=== PATIENT | female | born 1930 | race Caucasian/White ===

== ENCOUNTER 2017-04-29 15:58 | Inpatient (IN) | payer MEDICARE ==
[~2017-04-29] VITALS: Ht 160 cm; Wt 60.4 kg
--- OUTSIDE RECORDS SUMMARY | ~2017-04-29 | XMS | Clinical Summary ---
Demographics + + + | Address | [address] | | | [place] [address] | + + + | Home Phone | | + + + | Preferred Language | Unknown | + + + | Marital Status | Single | + + + | Baptism Affiliation | NON | + + + | Race | White | + + + | Ethnic Group | Not or | + + + Author + + + | Author | NON REVENUE LOCATIONS | + + + | Organization | NON REVENUE LOCATIONS | + + + | Address | Unknown | + + + | Phone | Unavailable | + + + Support +------+ +---------+ + | Name | Relationship | Address | Phone | +------+ +---------+ + ECON | Unknown | | +------+ +---------+ + Care Team Providers + +------+ + | Care Hat Marker Name | Role | Phone | + +------+ + PP | Unavailable | + +------+ + Source Comments RAFIA is fully live on both [facility] Ambulatory and [facility] InPatient.[facility] Allergies + + + + + + | Active Allergy | Reactions | Severity | Noted | Comments | | | | | Date | | + + + + + + | Tom Inhibitors | | | 02/22/20 | | | | | | 09 | | + + + + + + | Aspirin-Dipyridamole | | | 02/22/20 | | | | | | 09 | | + + + + + + | Meperidine (Pf) | Nausea/Vomiting | Medium | 07/05/19 | | | | | | 08 | | + + + + + + | Hydrochlorothiazide | | | 02/22/20 | | | | | | 09 | | + + + + + + Current Medications + + + +---------+------+------+-------+ | Prescription | Sig. | Disp. | Refills | Star | End | Statu | | | | | | t | Date | s | | | | | | Date | | | + + + +---------+------+------+-------+ | LOVASTATIN 40 MG | 1 tab q daily | | | | | Activ | | TAB | | | | | | e | + + + +---------+------+------+-------+ | CALCIUM 500 MG TAB | None Entered | | | | | Activ | | | | | | | | e | + + + +---------+------+------+-------+ | CENTRUM SILVER TAB | 1 tab q daily | | | | | Activ | | | | | | | | e | + + + +---------+------+------+-------+ | Tiotropium [place] | 1 puff q daily | | | | | Activ | | (SPIRIVA WITH | | | | | | e | | HANDIHALER) 18 mcg | | | | | | | | Inhalation Capsule, | | | | | | | | w/Inhalation Device | | | | | | | + + + +---------+------+------+-------+ | Levothyroxine | 1 tab q daily | | | | | Activ | | Sodium 50 mcg Oral | | | | | | e | | Tab | | | | | | | + + + +---------+------+------+-------+ | Fenofibrate | 1 tab q daily | | | | | Activ | | Micronized (TRICOR) | | | | | | e | | 48 mg Oral Tab | | | | | | | + + + +---------+------+------+-------+ | Aliskiren | 1 tab q daily | | | | | Activ | | (TEKTURNA) 150 mg | | | | | | e | | Oral Tab | | | | | | | + + + +---------+------+------+-------+ | Aspirin 81 mg Oral | Take 81 mg by mouth | | | | | Activ | | Tablet | once daily. | | | | | e | + + + +---------+------+------+-------+ | ALBUTEROL INHL | Inhale as needed. | | | | | Activ | | | | | | | | e | + + + +---------+------+------+-------+ | | Take 1 Tab by mouth | | | | | Activ | | olmesartan-hydrochlo | once daily. | | | | | e | | rothiazide (BENICAR | | | | | | | | HCT) 40-12.5 mg Oral | | | | | | | | Tablet | | | | | | | + + + +---------+------+------+-------+ | OMEPRAZOLE | Take by mouth once | | | | | Activ | | (PRILOSEC ORAL) | daily. | | | | | e | + + + +---------+------+------+-------+ | GUAR GUM | Take by mouth once | | | | | Activ | | (BENEFIBER ORAL) | daily. | | | | | e | + + + +---------+------+------+-------+ | | Inhale 1 Puff two | | | | | Activ | | fluticasone-salmeter | times daily. | | | | | e | | ol (ADVAIR DISKUS) | | | | | | | | 250-50 mcg/Dose | | | | | | | | Inhalation Disk with | | | | | | | | Device | | | | | | | + + + +---------+------+------+-------+ | | Take 1 Cap by mouth | | | | | Activ | | amlodipine-benazepri | two times daily. | | | | | e | | l 5-10 mg Oral | | | | | | | | Capsule | | | | | | | + + + +---------+------+------+-------+ | carvedilol 12.5 mg | Take 6.25 mg by | | | | | Activ | | Oral Tablet | mouth two times | | | | | e | | | daily. Administer | | | | | | | | with food. | | | | | | + + + +---------+------+------+-------+ | oxybutynin | Take 0.5 Tabs by | 60 Tab | 5 | 05/2 | | Activ | | (DITROPAN) 5 mg Oral | mouth two times | | | 5/20 | | e | | Tablet | daily. If | | | 10 | | | | | ineffective, may | | | | | | | | increase to three | | | | | | | | times a day (every 8 | | | | | | | | hours) | | | | | | + + + +---------+------+------+-------+ Active Problems + + + | Problem | Noted Date | + + + | Urinary incontinence | 08/14/2009 | + + + | Malignant neoplasm of cervix uteri (HCC) | 09/17/2005 | + + + + + | Overview: ICD10 | + + + +---+ | Transient cerebral ischemia | | + +---+ + + | Overview: <PROVIDER>JOELNE BOONE | | | | ICD10 | + + Immunizations + + + + | Name | Dates Previously Given | Next Due | + + + + | Influenza, split | 06/21/2008 | | + + + + | [id number] | 02/20/2009 | | + + + + Family History + + +------+ + | Medical History | Relation | Name | Comments | + + +------+ + | Heart Disease | Brother | | | + + +------+ + | Heart Disease | Father | | | + + +------+ + + +------+ + + | Relation | Name | Status | Comments | + +------+ + + | Brother | | | | + +------+ + + | Father | | | | + +------+ + + Social History + +-------+ +--------+------+ | Tobacco Use | Types | Packs/Day | Years | Date | | | | | Used | | + +-------+ +--------+------+ | Never Smoker | | | | | + +-------+ +--------+------+ + + + | Sex Assigned at | Date Recorded | | | | + + + | Not on file | | + + + Last Filed Vital Signs + + + + | Vital Sign | Reading | Time Taken | + + + + | Blood Pressure | 140/60 | 08/14/2009 11:37 AM PDT | + + + + | Pulse | 81 | 08/14/2009 11:37 AM PDT | + + + + | Temperature | 37.1 C (98.7 F) | 08/14/2009 11:37 AM PDT | + + + + | Respiratory Rate | 12 | 10/14/2005 11:52 AM PDT | + + + + | Oxygen Saturation | 91% | 08/14/2009 11:37 AM PDT | + + + + | Inhaled Oxygen | - | - | | Concentration | | | + + + + | Weight | 83.1 kg (183 lb 1.6 | 08/14/2009 11:37 AM PDT | | | oz) | | + + + + | Height | 160 cm (5' 3") | 08/14/2009 11:37 AM PDT | + + + + | Body Mass Index | 32.43 | 08/14/2009 11:37 AM PDT | + + + + Plan of Treatment + + + + + | Health Maintenance | Due Date | Last Done | Comments | + + + + + | INFLUENZA VACCINE | | 06/21/2008 | | | (FLU SHOT) | 7 | | | + + + + + Results Not on filefrom Last 3 Months
--- OUTSIDE RECORDS SUMMARY | ~2017-04-29 | XMS | Clinical Summary ---
Demographics + + + | Address | [address] | | | [place] [address] | + + + | Home Phone | | + + + | Preferred Language | Unknown | + + + | Marital Status | Single | + + + | Muslim Affiliation | NON | + + + [...] Team Providers + +------+ + | Care Secure Software Assessor Name | Role | Phone | + +------+ + PP | Unavailable | + +------+ + Source Comments RAFIA is fully live on both [facility] Ambulatory and [facility] InPatient.[facility] Allergies + + + + + + [...] | + + + +---------+------+------+-------+ | Tiotropium [place] | 1 puff q daily | | [...] | + +---+ + + | Overview: <PROVIDER>JOLENE BOONE | | | | ICD10 | + + Immunizations + + + + | Name | Dates Previously Given | Next Due | + + + + | Influenza, split | 06/21/2008 | | + + + + | [id number] | 02/20/2009 | | + + + [...]
--- OUTSIDE RECORDS SUMMARY | ~2017-04-29 | XMS | Clinical Summary ---
Demographics + + + | Address | [address] | | | [place] [address] | + + + | Home Phone [...] Team Providers + +------+ + | Care Mis Director Name | Role | Phone | + +------+ + PP | Unavailable | + +------+ + Source Comments RAFIA is fully live on both [facility] Ambulatory and [facility] InPatient.[facility] Allergies + + + + [...] | + + + +---------+------+------+-------+ | Tiotropium [place] | 1 puff q daily | | [...] | | + + + + | [id number] | 02/20/2009 | | + + + [...]
[~2017-04-29 15:58] MED LIST: ALBUTEROL SULF8.5 GM INH; AMLODIPINE BESYL5 MG PO; ASPIRIN EC81 MG PO; ATENOLOL50 MG PO; BENICAR HCT 401 EAC1 PO; CARVEDILOL6.25 MG PO; DOXAZOSIN MESYLA1 MG PO; FENOFIBRATE145 MG PO; IPRAT-ALBUT 0.5-3 ML INH; LEVOTHYROXINE50 MCG PO; LOVASTATIN40 MG PO; METFORMIN HCL500 MG PO; MULTIPLE VITAM1 EAC2 PO; OMEPRAZOLE20 M1 PO; PROBIOTIC1 EAC2 PO; SPIRIVA18 MCG INH; TEKTURNA150 MG PO
[2017-04-29] MEDS ORDERED: ADULT ASPIRIN R81 MG PO (16:26)
[2017-04-29] MEDS ORDERED: FISH OIL 1,0001 EAC5 PO (16:27)
[2017-04-29] MEDS ORDERED: LASIX20 MG PO (16:28)
[2017-04-29] MEDS ORDERED: POTASSIUM CHLO10 MEQ PO (16:28)
[2017-04-29] MEDS ORDERED: VENTOLIN HFA18 GM INH (16:29)
[2017-04-29] MEDS ORDERED: IRON325 M1 PO (16:29)
[2017-04-29] MEDS ORDERED: OCUVITE TABLET1 EAC1 PO (16:30)
[2017-04-29] MEDS ORDERED: VITAMIN D1000 UNI1 PO (16:30)
[2017-04-29] MEDS ORDERED: COZAAR100 MG PO (16:30)
--- NOTE | 2017-04-29 20:50 | NUR ---
1936 - Pt admitted to room 119 from ED via [facility], dx chf exarcebation. pt acompanied by daughter. Sob and anxiety noted during transfer. pt transferred with assist to bed. O2 2l NC, sats were 84-86%, O2 up to 3L 86-88% after several minutes, R 26, shallow and rapid. Pt encouraged to slow down resp and do CDB, O2 up to 4L nc, sats up to 91% after several minutes. Pt encouraged and praised anxiety reduced. 2029 - neb given , hob elevated to pts comfort. much calmer after tx, mag rider started, took 40meq of po K. Pt cooperative with admit assessment, repositioned multiple times in bed, f/c patent, tele in place
--- NOTE | 2017-04-29 22:05 | NUR ---
PATIENTS ASSMENT COMPLETED AND RECORDED. PATIENT IS RESTING IN BED WITH HOB UP. PATIENT DENIES ANY SOB AT THIS TIME. PATIENT DOES HAVE 2+ EDEMA BILAT IN HER LOWER EXT. PATIENT IS ON TELE #6, IRREGULAR RHYTHM, HR 76. PATIENT IS ON 2L VIA NC. PULSE OX IN PLACE AND READINGS ARE WNL. PATIENT HAS BAGLEY IN PLACE, OUTPUT IS QS. ALL QUESTIONS ANSWERED. PATIENT DENIES ANY FURTHER NEEDS AT THIS TIME. PATIENT EDUCATED ON THE USE OF THE CALL LIGHT. PATIENT VERBALIZED UNDERSTANDING. PATIENTS DAUGHTER KARLY IS AT THE BEDSIDE. NO FURTHER NEEDS NOTED. CALL LIGHT IN REACH. PATIENT IS SL.
--- NOTE | 2017-04-30 00:25 | NUR ---
PATIENTS MEDICATIONS GIVEN PER ORDER. PATIENT REMAINS ON 3L VIA NC. PATIENTS PULSE OX READINGS ARE WNL. PATIENT DENIES ANY SOB. PATIENT STATED "I FEEL SO MUCH BETTER". PATIENT IS ON TELE #6, HR 68. NO FURTHER NEEDS NOTED CALL LIGHT IN REACH.
--- NOTE | 2017-04-30 03:19 | NUR ---
PATIENTS VITALS TAKEN AND RECORDED. PATIENTS BAGLEY IS DRAINGIN YELLOW URINE, OUPUT IS QS. PATIENT REMAINS ON 3L VIA NC. PULSE OX READINGS ARE WNL. PATIENT STATED "I AM FINALLY GETTING GOOD REST". PATIENT DENIES ANY NEEDS AT THIS TIME. CALL LIGHT IN REACH.
--- NOTE | 2017-04-30 04:05 | NUR ---
Pt has slept most of this shift, alert and oriented. Up to bsc, had large hard bm. f/c patent, draining dark yellow urine. Able to stand up for daily weight Tolerated well,
--- NOTE | 2017-04-30 04:07 | NUR ---
PATIENT ASSISTED TO THE BSC A 1PA. PATIENT WAS ABLE TO HAVE A SMALL BM. PATIENT IS NOW BACK IN BED RESTING. NO FURTHER NEEDS NOTED. CALL LIGHT IN REACH.
--- NOTE | 2017-04-30 05:15 | NUR ---
PATIENT RESTED WELL DURING THE LATER PART OF THE SHIFT. PATIENT IS ON A CARDIAC DIET. PATIENT HAS HOB AT 45 DEGREES. PATIENT IS ON TELE #6, IRREGULAR, HR IN THE 70'S. PATIENT HAS BAGLEY IN PLACE. URINE IS YELLOW AND OUTPUT IS QS. PATIENT IS AAOX3 AND USES CALL LIGHT APPROPRIATELY. PATIENT IS ON 3L VIA NC (2 CHRONICALLY). PATIENT IS A 1PA TO [facility]. SOB WITH ACTIVITY. PATIENT HAS EDEMA BILAT IN LOWER EXT.
--- NOTE | 2017-04-30 06:01 | NUR ---
PATIENTS VITALS TAKEN AND RECORDED. PATIENT DENIES ANY SOB AT THIS TIME. PATIENT TITRATED TO 2L VIA NC. PATIENTS OXYGEN SATURATION IS 95% ON 2L. PATIENT REMAINS ON TELE #6, IRREGULAR, HR 68. NO NEEDS NOTED AT THIS TIME. CALL LIGHT IN REACH.
--- NOTE | 2017-04-30 07:00 | NUR ---
REPORT RECEIVED FROM NICANOR, PATIENT IS RESTING IN BED WITH OXYGEN ON AT 2L PER NC. HOB ELEVATED AND PATIENT HAS NO C/O SOB OR PAIN AT THIS TIME.
--- NOTE | 2017-04-30 07:46 | NUR ---
PATIENT 1 PERSON ASSIST WITH 2L NC OXYGEN UP TO THE BATHROOM TO ATTEMPT TO HAVE A BM. PATIENT VITALS TAKEN AND AM MEDICATION GIVEN AT THIS TIME. SHE IS ALERT AND ORIENTED AND DENIES ANY SOB WHEN UP TO THE BATHROOM.
--- NOTE | 2017-04-30 08:23 | NUR ---
PATIENT ATE 80% OF HER BREAKFAST, SHE REMAINS ON OXYGEN AT 2L PER NC. NO C/O SOB AT THIS TIME
--- NOTE | 2017-04-30 09:12 | NUR ---
patient assisted back to bed at this time, daughter at bedside, no c/o sob or pain at this time, patient lungs are dim but clear and pulse ox remains on
--- NOTE | 2017-04-30 09:48 | NUR ---
CONSULT RECEIVED FOR LOW-SODIUM DIET EDUCATION FOR CHF. PATIENT LIVES WITH HER DAUGHTER, KARLY, WHOM I KNOW PERSONALLY. KARLY COOKS MEALS FROM [employer], ALTHOUGH THEY DO HAVE SANDWICHES FOR LUNCH AT TIMES. I GAVE THEM A FOLDER WITH NUTRITION THERAPY FOR HEART FAILURE INFO, LOW-SODIUM GROCERY LIST, TIPS ON FLAVORING FOOD WITHOUT USING SALT, LOW-SODIUM SNACK LIST, AND LOW-SODIUM COOKBOOK TITLES AND WEBSITES. I REMINDED THEM THAT THE SODIUM LIMIT IS 2,000 MG A DAY - THIS INCLUDES WHAT IS ALREADY IN FOOD PLUS WHAT IS ADDED WHEN COOKING OR EATING. PROVIDED SOME PRODUCTS TO SWITCH TO FOR SODIUM SAVINGS. THEY APPRECIATED THE INFO. KARLY CAN CALL ME IF SHE HAS MORE QUESTIONS. THEY WILL DO WELL.
--- NOTE | 2017-04-30 09:52 | NUR ---
DOCTOR BERKLEY IN TO SEE THE PATIENT, LASTING MACHINE OPERATOR HAS ALSO BEEN IN TO VISIT WITH THE FAMILY AND THE PATIENT. ALL ARE UNDERSTANDING OF THE PLAN OF CARE AT THIS TIME. US COMING FOR AN ECHO AT THIS TIME. PATIENT RESTING IN BED HOB ELEVATED WITH RAILS UP
--- NOTE | 2017-04-30 10:22 | NUR ---
ULTRASOUND COMPLETED, EXTRA DOSE OF LASIX GIVEN AT THIS TIME. PATIENT MOVED UP IN BED.
[2017-04-30] MEDS ORDERED: FLOVENT HFA12 G1 INH (11:09)
[2017-04-30] MEDS ORDERED: AMLODIPINE BESY10 MG PO (11:10)
[2017-04-30] MEDS ORDERED: LOSARTAN-HCTZ1 EAC2 PO (11:12)
[2017-04-30] MEDS ORDERED: PHILLIPS' COLO1 EACH PO (11:13)
[2017-04-30] MEDS ORDERED: FISH OIL 1,2001 EACH PO (11:13)
[2017-04-30] MEDS ORDERED: CENTRUM SILVER1 EAC3 PO (11:13)
[2017-04-30] MEDS ORDERED: FIBER350 GM PO (11:14)
[2017-04-30] MEDS ORDERED: METOPROLOL SUCC50 MG PO (11:15)
--- NOTE | 2017-04-30 11:16 | NUR ---
MED REC COMPLETE
--- NOTE | 2017-04-30 12:06 | NUR ---
PATIENT ATE 100% OF HER LUNCH, URINE OUTPUT AFTER LAST DOSE OF LASIX HAS INCREASED AT THIS TIME, URINE IS CLEAR LIGHT YELLOW IN COLOR.
--- NOTE | 2017-04-30 12:55 | NUR ---
RECIEVED REPORT FROM DEREK DEGROOT. PATIENT RESTING IN BED. DAUGHTER AT BEDSIDE. REFILLED WATER PITCHER. PATIENT DENIES FURTHER NEEDS. NC IN PLACE, CONT. PULSE OX IN PLACE AT 97%. CALL LIGHT IN REACH.
--- NOTE | 2017-04-30 13:07 | EKG ---
[facility] [address] [place] [address] Signed Sinus rhythm with 1st degree AV block with premature supraventricular complexes Left bundle branch block Abnormal ECG No previous ECGs available Confirmed by JESUS GOODEN MD ([id number]) on 04/30/2017 1:07:19 PM Electronically Signed By: JESUS GOODEN MD 04/30/17 1307 PATIENT NAME: SIGRID CHANCE AUDRA Electrocardiogram DATE OF : [birth year] PHYSICIAN: JESUS GOODEN MD REPORT #: [id number] REPORT IS CONFIDENTIAL AND NOT TO BE RELEASED WITHOUT AUTHORIZATION
--- NOTE | 2017-04-30 13:45 | NUR ---
PATIENT RESTING IN BED. DAUGHTER AT BEDSIDE. NASAL CANNULA IN PLACE. FINE CRACKLES HEARD IN LLL, OTHERWISE LUNGS ARE CLEAR. HR REGULAR. BS ACTIVE. NON-PITTING EDEMA NOTED IN BLE. PALPABLE PEDAL PULSES. PATIENT DENIES PAIN. DENIES SOB. BREATHING IS EVEN AND UNLABORED. BAGLEY CATHETER IN PLACE DRAINING CLEAR YELLOW URINE. PATIENT AND DAUGHTER DENY NEEDS. CALL LIGHT IN REACH.
--- NOTE | 2017-04-30 15:49 | NUR ---
RESPIRATORY THERAPY IN TO ADMINISTER NEB TX. PATIENT DENIES NEEDS/
--- NOTE | 2017-04-30 16:19 | NUR ---
AMBULATED WITH PATIENT AROUND [facility] UN[facility] X 2 WITH FWW AND O2 TANK. BACK TO ROOM WITH PATIENT, SAT HER UP IN CHAIR. PATIENT STATES SHE FEELS A LITTLE SOB. BLE ELEVATED. DENIES NEEDS. CALL LIGHT IN REACH.
--- NOTE | 2017-04-30 16:28 | NUR ---
HEART FAILURE EDUCATION - Pt. unable to participate at this time. Daughter is livestock yard attendant and was very receptive to information. [facility] Given HF folder with Living with HF book and Zones magnet. Discussed use of medication for HF and potential side effects. Has 7 day pill reminder box. Daughter is now managing medications. Pharmacy is [facility] but states will purchase a new easier to read type. Has already seen military source operations officer for low sodium diet. Daughter does most of the cooking and shopping. Already follows a healthy diet low in processed foods. Has transportation. Does use home oxygen PRN. Daughter states has had a sleep study but she is unsure of results. She has questions about community support for caregivers that Natasha Richey will follow up on.
--- NOTE | 2017-04-30 17:32 | NUR ---
PATIENT HAVING DINNER WITH FAMILY. POTASSIUM ADMINISTERED. PATIENT DENIES NEEDS. REFILLED WATER PITCHER. CALL LIGHT IN REACH.
--- NOTE | 2017-04-30 17:34 | NUR ---
TITRATED O2 TO 1L FROM 2L. PATIENT'S O2 ON 1L AT 94%. CONT. PULSE OX IN PLACE.
--- NOTE | 2017-04-30 19:40 | NUR ---
RECEIVED REPORT FROM DAY SHIFT RN. PATIENT ASSISTED TO THE RESTROOM. PATIENT IS A SBA. PATIENT HAD A SMALL BM. PATIENT DENIES ANY SOB WITH ACTIVITY. PATIENTS DAUGHTER IS AT THE BEDSIDE. PATIENT AND DAUGHTER EXPRESS CONCERN OF FACIAL FLUSHING. WILL CONTINUE TO MONITOR. PATIENT IS NOW BACK IN BED RESTING. CALL LIGHT IN REACH.
--- NOTE | 2017-04-30 20:27 | NUR ---
PATIENT ASSESMENT COMPLETED. PATIENT IS ON 1L VIA NC. PULSE OX IN PLACE AND READINGS ARE WNL. PATIENT DENIES ANY SOB. PATIENT IS RESTING IN BED WATHCING TV. PATIENTS DAUGHTER HAS LEFT FOR THE EVENING. PATIENT HAS A BAGLEY IN PLACE. URINE OUPUT IS TEA COLORED TO YELLOW, OUPUT IS QS. PATIENT IS ON TELE #6, HR IRREGULAR, HR 82. PATIENT DENIES ANY NEEDS AT THIS TIME. CALL LIGHT IN REACH.
--- NOTE | 2017-04-30 20:38 | NUR ---
Rounded up as charge nurse, pt awake, in bed O2 1L nc, pt denies c/o pain or sob at this time. no other requests
--- NOTE | 2017-04-30 21:17 | NUR ---
PATIENTS BAGLEY EMPTIED. PATIENT ASSISTED A SBA BACK TO THE BED FROM THE RESTROOM. PATIENT DENIES ANY SOB. PATIENT IS BACK IN BED RESTING. PATIENT DENIES ANY FURTHER NEEDS AT THIS TIME. CALL LIGHT IN REACH.
--- NOTE | 2017-04-30 21:32 | NUR ---
PATIENTS VITALS TAKEN AND RECORDED. PATIENTS EVENING MEDCIATIONS GIVEN PER ORDER. PATIENTS INTAKE AND OUPUT AND RECORDED. PATIENTS PULSE OX READINGS ARE WNL. PATIENT REMAINS ON 1L VIA NC. PATIENT IS ON TELE #6, HR 74. PATIENT DENIES ANY FURTHER NEEDS CALL LIGHT IN REACH.
--- NOTE | 2017-04-30 23:37 | NUR ---
PATIENT WAS UP OUT OF BED. PATIENT EDUCATED ON THE IMPORTANCE OF ALERTING STAFF TO ASSIST PATIENT WITH GETTING UP. PATIENT VERBALIZED UNDERSTANDING. PATIENTS BED ALARM PLACED ON FOR SAFETY. NO NEEDS NOTED. CALL LIGHT IN REACH.
--- NOTE | 2017-05-01 00:44 | NUR ---
PATIENTS BAGLEY EMPTIED. PATIENT DENIES ANY SOB. PATIENT IS 93% ON 1L VIA NC. PATIENT HAS PULSE OX IN PLACE, READINGS ARE WNL. PATIENT REMAINS ON TELE #6, HR 66. PATIENT DENIES ANY NEEDS. CALL LIGHT IN REACH. BED ALARM ON FOR SAFETY.
--- NOTE | 2017-05-01 02:30 | NUR ---
PATIENT IS RESTING IN BED WITH EYES CLOSED. PATIENT REMAINS ON 1L VIA NC. PATIENTS PULSE OX READINGS ARE WNL. CALL LIGHT IN REACH.
--- NOTE | 2017-05-01 03:09 | NUR ---
PATIENT CONTINUES TO REST IN BED WITH EYES CLOSED. PULSE OX READINGS ARE WNL. CALL LIGHT IN REACH. SERGIO HAS GOOD OUPUT.
--- NOTE | 2017-05-01 04:18 | NUR ---
REPORT RECIEVED FROM ZANE VICK. TAKING OVER CARE OF THIS PATIENT.
--- NOTE | 2017-05-01 04:34 | NUR ---
ASSESSED BAGLEY TO ENSURE GOOD DRAINING. PATIENT IS RESTING WITH EYES CLOSED, APPEARS COMFORTABLE. RR18.
--- NOTE | 2017-05-01 06:00 | NUR ---
MORNING MEDS GIVEN. FRESH WATER. PATIENT REPOSITIONED HERSELF IN BED. HOB ELEVATED TO GREATER THAN 45 DEGREES. PATIENT STATES SHE FEELS BETTER TODAY BUT IS VERY TIRED. LUNGS ARE CLEAR IN THE UPPER LOBES BILATERALLY AND DIMINISHED IN THE BASES. BAGLEY IS DRAINING CLEAR YELLOW URINE. PATIENT DENIES FURTHER NEEDS AT THIS TIME.
--- NOTE | 2017-05-01 07:45 | NUR ---
BEDSIDE REPORT FROM JOSSIE. PATIENT RESTING IN BED SLEEPING. RR EVEN/UNLABORED. IV FLUID INFUSING. NO APPARENT DISTRESS NOTED. WHITE BOARD UPDATED.
--- NOTE | 2017-05-01 07:50 | NUR ---
REPORT RECEIVED FROM JOSSIE. PATIENT RESTING IN BED AWAKE. DENIES PAIN. NO REQUEST MADE. BREAKFAST ORDERED.
--- NOTE | 2017-05-01 08:26 | NUR ---
IN TO ROOM, PATIENT SITTING IN BED EATING BREAKFAST. MORNING MEDS ADMINISTERED. PATIENT ASSISTED TO CHAIR WITH SBA. MORNING ASSESSMENT DONE. LUNGS DIM. HR IRREGULAR. PEDAL PULSES PALPABLE. ABD SOFT AND POSITIVE BOWEL TONES. PATIENT REPORTS DISCOMFORT FROM LYING IN BED, DENIES PAIN. PATIENT ON 1L OF O2. SITTING IN THE CHAIR, CALL LIGHT IN REACH. LINENS CHANGED.
--- NOTE | 2017-05-01 08:37 | NUR ---
GOT PATIENT UP TO HER CHAIR. SHE WASHED HER FACE AND BRUSHED HER TEETH. ALSO SET HER UP TO TAKE A SHOWER TODAY. CHANGED BED LINENS.
--- NOTE | 2017-05-01 10:10 | NUR ---
PATIENT RESTING IN THE CHAIR, LASIX AND PO K+ AND MAG ADMINISTERED. PATIENT REPORTS NO PAIN AT THIS TIME. STILL WEAK BUT STEADY ON HER FEET.
--- NOTE | 2017-05-01 12:35 | NUR ---
BAGLEY AND TELE D/C PER MD ORDER. PATIENT WAS EDUCATED ABOUT THE NEED TO VOID AFTER BAGLEY DC. PATIENT HAD NO COMPLAINTS AT THIS TIME. RESTING IN BED. CALL LIGHT IN REACH.
--- NOTE | 2017-05-01 13:39 | NUR ---
PT LAYING IN BED. ALERT AND MOSTLY ORIENTED. SHE MENTIONED THAT SHE WAS VERY TIRED, NOT MUCH SLEEP LAST NIGHT AND HAD AN UPSET STOMACH SHE BELIEVES FRONM ALBUTEROL TREATMENT. I TOLD PT I WOULD LET HER REST, PT REQUESTED PRAYER. WILL CONTINUE TO FOLLOW NEEDED. SHE DID MENTIONED SHE SENT HER G.DAUGHTER HOME TO REST-SO SHE COULD
--- NOTE | 2017-05-01 14:01 | NUR ---
REPORT GIVEN TO ZANE LEDEZMA. PATIENT RESTING IN BED AT THIS TIME.
--- NOTE | 2017-05-01 16:30 | NUR ---
PATIENT ASSISTED UP TO THE COMMODE, VOIDED 55O MLS OF CLEAR YELLOW URINE, SHE IS A STANDBY ASSIST AT THIS TIME, NEEDS HELP WITH ALL OF HER TUBES.
--- NOTE | 2017-05-01 16:44 | NUR ---
NEB TX GIVEN TO THE PATIENT AT THIS TIME, NO C/O NAUSEA WITH TX AND NO ATROVENT. PATIENT USED IS UP TO 1000 AT THIS TIME. LUNGS ARE DIM THROUGH OUT.
--- NOTE | 2017-05-01 17:00 | NUR ---
AROUND 1230 TODAY WE REMOVED HER TELLE AND ALSO HER BAGLEY.
--- NOTE | 2017-05-01 18:00 | NUR ---
I AND O COMPLETE AND VITALS DONE, DAUGHTER REMAINS IN THE ROOM
--- NOTE | 2017-05-01 19:00 | NUR ---
SHIFT REPORT RECIEVED AT BEDSIDE. PATIENT IN RECLINER VISITING WITH FAMILY. SHE REPORTS HAVING A GOOD DAY AND DENIES NEEDS AT THIS TIME.
--- NOTE | 2017-05-01 19:05 | NUR ---
SHIFT REPORT RECIEVED AT BEDSIDE. PATIENT HAD HER NC UP ON HER FOREHEAD. WHEN RN REPLACED IT TO HER NOSE SHE OPENED HER EYES AND STATED "DONT DO THAT". PATIENT DOES NOT ANSWER QUESTIONS BUT DOES OPEN HER EYES TO VOICE. HER ATTEND IS DRY AT THIS TIME. CALL LIGHT IN USE. EDUCATED PATIENT ON PROPER USE OF THIS, BUT SHE DOES NOT APPEAR TO BE RECEPTIVE OF THE INFORMATION. WILL MONITOR CLOSELY FOR NEEDS.
--- NOTE | 2017-05-01 19:15 | NUR ---
FAMILY IS LEAVING FOR THE NIGHT. PATIENT IS BACK IN BED. 300MLS PROVIDED FOR THE PATINET. NO MORE FREE WATER TONIGHT.
--- NOTE | 2017-05-01 19:42 | NUR ---
RECIEVED REPORT FROM DAY SHIFT NURSE. PATIENT RESTING UP IN CHAIR. FAMILY PRESENT IN ROOM. NASAL CANNULA IN PLACE. O2 AT 96%, CONT. PULSE OX IN PLACE. PATIENT DENIES NEEDS. CALL LIGHT IN REACH.
--- NOTE | 2017-05-01 20:50 | NUR ---
PATIENT RESTING IN BED. EVENING MEDS GIVEN PER ORDER. PATIENT DENIES PAIN. SHE IS AAOX3. LUNGS ARE CLEAR THROUGHOUT. ABD IS SOFT AND NONTENDER. BOWEL SOUNDS ACTIVE. CMS INTACT. MINIMAL EDEMA NOTED IN LOWER EXTREMITIES. PATIENT UP TO THE BSC. BACK INTO BED, HOB ELEVATED. PATIENT STATES SHE IS COMFORTABLE. CALL LIGHT IN REACH.
--- NOTE | 2017-05-01 23:30 | NUR ---
PATIENT RESTING IN BED. EYES CLOSED. RR16. O2 SAT 98%. CALL LIGHT IN REACH.
--- NOTE | 2017-05-02 01:30 | NUR ---
PATIENT SLEEPING SOUNDLY. AROUNSED TO VOICE AND TOUCH. AGREED TO GET UP TO BSC. SBA FOR TRANSFER. PATIENT DENIES OTHER NEEDS AT THIS TIME. BACK TO BED. 1L NC. O2 SAT 97%. CALL LIGHT IN REACH. BED ALARM SET.
--- NOTE | 2017-05-02 04:39 | NUR ---
PATIENT RESTING IN BED. EYES CLOSED. RR 16. O2 SAT 88% ON 1L NC. TITRATED TO 2L NC. O2 SAT IMPROVED TO 94%. CALL LIGHT IN REACH. BED ALARM SET.
--- NOTE | 2017-05-02 05:45 | NUR ---
PATIENT EXITED THE BED WITHOUT CALLING. BED ALARM ALERTED STAFF. ASSISTED HER TO BSC. PATIENT DENIES OTHER NEEDS. BACK TO BED. BED ALARM ON. CALL LIGHT IN REACH.
--- NOTE | 2017-05-02 06:28 | NUR ---
VITALS AND I&OS DONE AND CHARTED. WEIGHT DONE WELL. BEDSIDE TABLE AND CALL LIGHT WITHIN REACH.
--- NOTE | 2017-05-02 06:41 | NUR ---
PATIENT SLEPT WELL THROUGHOUT THE NIGHT. EXITED THE BED X1 WITHOUT CALLING. SBA TO BSC. 2L NC. 1500 FLUID RESTRICTION. DAILY WT. OUTPUT QS. AAOX3.
--- NOTE | 2017-05-02 07:45 | NUR ---
RECIEVED BEDSIDE REPORT FROM ZANE SETHI. PT AWAKE AND ALERT IN BED. O2 IN PLACE AT 2L. PT DENIES NEEDS AT THIS TIME.
--- NOTE | 2017-05-02 10:31 | NUR ---
PATIENT TOOK A SHOWER AND I MADE HER BED, HER DAUGHTER IS VISITNG HER RIGHT NOW, SHE ALSO JUST CALLED TO USE THE REST ROOM!
--- NOTE | 2017-05-02 13:56 | NUR ---
PT'S DAUGHTER IS IN ROOM PROVIDING TOENAIL CARE WITH TOOLS BROUGHT FROM HOME. PT AWARE OF DANGERS AND THAT HOSPITAL IS NOT RESPONSIBLE. PT DAUGHTER ASSISTING WITH CARE. PT UP TO BATHROOM SEVERAL TIMES. FAMILY, SCHEDULE CHECKER, AND RN TRACKING FLUID INTAKE.
--- NOTE | 2017-05-02 14:30 | NUR ---
I WENT INTO THE PATIENTS ROOM, DAUGHTER WAS DOING HER MOTHERS TOE NAILS. SHE DIDNT NEED ANY ASSISTANCE AT THE TIME.
--- NOTE | 2017-05-02 17:53 | NUR ---
PT UP TO CHAIR THIS SHIFT. FAMILY VISITED. PT CONTINUES TO DIURESS, SBA TO BATHROOM OR BSC. BED ALARM PT SELF TRANSFERS. O2 AT 2L, DESATS WHEN TITRATED DOWN. PT SLIGHTLY FORGETFUL. PT VERY COOPERATIVE WITH CARES. FAMILY VERY HELPFUL.
--- NOTE | 2017-05-02 19:00 | NUR ---
SHIFT REPORT RECIEVED AT BEDSIDE. PATIENT RESTING IN BED. HER DAUGHTER IS AT THE BEDSIDE. PATIENT APPEARS TO BE IN GOOD SPIRITS. DENIES NEEDS. CALL LIGHT IN REACH.
--- NOTE | 2017-05-02 20:20 | NUR ---
EVENING MEDS GIVEN PER ORDER. PATIENT RESTING IN BED. PATIENT'S DAUGHTER LEAVING FOR THE NIGHT. RN ASSISTED PATIENT TO THE BATHROOM, SBA. PATIENT HAD A SMALL BM. PATIENT SAT ON EDGE OF BED FOR A FEW MINS. PERFORMED CPT & IS X5 EACH. LUNGS ARE CLEAR, DIMINISHED IN THE BASES. PATIENT ON 2L NC. ABD IS MILDLY DISTENDED AND FIRM, NONTENDER AND HYPERACTIVE BOWEL SOUNDS. NO NAUSEA AND INCREASED APPETITE TODAY. MINIMAL EDEMA NOTED ON KATHRYN LOWER EXTREMITIES. PATIENT DENIES ANY PAIN. REPORTS SHE HAD A GOOD DAY TODAY AND IS READY FOR BED. ASSISTED PATIENT INTO BED. PULSE OX IN USE. CALL LIGHT IN REACH. BED ALARM ON. REMINDED PATIENT TO CALL FOR ASSIST AND SHE AGREES.
--- NOTE | 2017-05-03 01:20 | NUR ---
patient appeared to be sleeping soundly. patient aroused easily to voice. patient up to bsc and then back to bed. denies other needs.
--- NOTE | 2017-05-03 04:04 | NUR ---
PATIENT RESTING WITH EYES CLOSED. O2 SAT 98% ON 2L. CALL LIGHT IN REACH. BED ALARM ON.
--- NOTE | 2017-05-03 06:15 | NUR ---
PATIENT UP TO BSC WITHOUT CALLING. BED ALARM ALERTED STAFF. PATIENT BACK TO BED. DENIES NEEDS THIS MORNING. LEB IN ROOM FOR MORNING DRAW. BED ALARM ON. CALL LIGHT IN REACH.
--- NOTE | 2017-05-03 06:21 | NUR ---
PATIENT RESTED WELL THROUGHOUT THE NIGHT. UP TO BSC WITH SBA. DID NOT USE CALL LIGHT DURING THE NIGHT. 1500ML FLUID RESTRICTION. 2L NC. POOR APPETITE. MORNING LABS TODAY.
--- NOTE | 2017-05-03 07:33 | NUR ---
RECIEVED BEDSIDE REPORT FROM ZANE SETHI. PT AWAKE AND ALERT IN BED WITH BED ALARM ON. REORIENTED TO WHY BED ALARM IS NEEDED. REMINDED PT TO LEAVE HAT IN TOILET FOR URINE MEASUREMENT.
--- NOTE | 2017-05-03 09:40 | NUR ---
PT IN CHAIR WITH FAMILY AT BEDSIDE. EXPLAINED TO DAUGHTER IMPORTANCE OF MEASURING URINE OUTPUT, SHOWED CHART ON DOOR. DAUGHTER VERBALIZED UNDERSTANDING OF CHARTING.
--- NOTE | 2017-05-03 12:59 | NUR ---
PT IN ROOM WITH FAMILY. SITTING IN CHAIR. DAUGHTER IS ASSISTING TO BATHROOM AND MARKING ON CHART. PT VOIDING WELL, LARGE BM. PT DENIES NEEDS AT THIS TIME. PERSONAL BELONGINGS IN REACH. WILL WALK THIS AFTERNOON.
--- NOTE | 2017-05-03 14:54 | NUR ---
PT UP WALKING WITH HER DAUGHTER. O2 AT 2L, PORTABLE O2 WITH HER.
--- NOTE | 2017-05-03 18:16 | NUR ---
PT REPORTS FEELING "BETTER". CONTINUES TO DIURESE. REPORTS LESS COUGHING, LESS SOB. CONTINUES ON 2L NASAL CANULA. BED ALARM ON, PT GETS UP WITHOUT ASSISTANCE. STAND BY ASSIST WITH WALKER. BM TODAY. AMBULATED IN JOHN WITH DAUGHTER.
--- NOTE | 2017-05-03 19:00 | NUR ---
SHIFT REPORT RECIEVED AT BEDSIDE. PATIENT RESTING IN BED WATCHING TV. DENIES NEEDS AT THIS TIME. CALL LIGHT IN REACH. BED ALARM SET. REMINDED PATIENT TO USE CALL LIGHT.
--- NOTE | 2017-05-03 19:55 | NUR ---
EVENING MEDS GIVEN PER ORDER. PATIENT APPEARED TO BE SLEEPING BUT AROUSED TO VOICE. PATIENT DENIES NEEDS TO USE THE BATHROOM AT THIS TIME. NO PAIN OR NAUSEA. LUNG SOUNDS ARE CLEAR WITH DIMINISHED BASES. ABD IS SOFT WITH ACTIVE BOWEL SOUNDS. TRACE EDEMA NOTED IN THE LOWER EXTREMITIES. O2 SAT 94% ON 2 NC. CALL LIGHT IN REACH. BED ALARM ON.
--- NOTE | 2017-05-04 00:02 | NUR ---
RECIEVED REPORT FROM JOSSIE DEGROOT. PATIENT SLEEPING. NASAL CANNULA IN PLACE AT 2L/MIN. CONT. PULSE OX IN PLACE. O2 AT 96%. CALL LIGHT IN REACH. BED ALARM IN PLACE.
--- NOTE | 2017-05-04 01:46 | NUR ---
PATIENT SLEEPING. O2 AT 92% ON 2L/MIN. CALL LIGHT IN REACH.
--- NOTE | 2017-05-04 03:35 | NUR ---
HELPED PT TO THE BATHROOM AND BACK TO BED WITH FWW. BEDSIDE TABLE AND CALL LIGHT IN REACH. PT NEEDS NOTHING ELSE AT THIS TIME SHE SAYS WHEN ASKED.
--- NOTE | 2017-05-04 03:45 | NUR ---
PATENT SLEEPING, EVIDENCE BY SNORING. CONT PULSE OX IN PLACE, O2 SAT AT 95% ON 2L OF O2. CALL LIGHT IN REACH.
--- NOTE | 2017-05-04 06:00 | NUR ---
VITALS AND I&OS DONE AND CHARTED. BEDSIDE TABLE AND CALL LIGHT IN REACH.
--- NOTE | 2017-05-04 06:26 | NUR ---
ASSISTED PATIENT TO BATHROOM. VOIDED. BACK TO BED. CRACKLES HEARD IN L LUNG BASE. HR REGULAR. BS ACTIVE. TRACE PEDAL EDEMA. PATIENT DENIES PAIN. WATER PITCHER FILLED. CALL LIGHT IN REACH. XRAY IN TO TRANSPORT PATIENT.
--- NOTE | 2017-05-04 07:30 | NUR ---
PATIENT UP TO BATHROOM WITH FWW STAND BY ASSIST. STUDENT NURSE PRESENT. PATIENT UP TO SINK-ORAL CARE, WASHED FACE, HANDS, AND TEETH, COMBED AND SPRAYED HAIR. PATIENT BACK TO CHAIR FWW SITTING STRAIGHT UP FOR BEAKFAST. CALL LIGHT IN REACH, NO THER NEEDS
--- NOTE | 2017-05-04 07:30 | NUR ---
PATIENT SITTING UP IN BED USING "IS". SET UP FOR AM CARE AND BREAKFAST BRUSHED TEETH AND WASHED FACE. HELPED TO RESTROOM USING FWW. STUDENT PRESENT. LEFT WATER IN CUP. NO OTHER NEEDS AT THIS TIME.
--- NOTE | 2017-05-04 07:30 | NUR ---
PATIENT REFUSED SHOWER AGREED TO BATH. THIS SUPERVISOR [employer] ASSISTED PATIENT WITH SPONGE BATH.
--- NOTE | 2017-05-04 07:31 | NUR ---
RECIEVED BEDSIDE REPORT FROM ZANE ZAFAR. PT REPORTS A GOOD NIGHT, WOULD LIKE TO GET UP AND DO AM CARE. CLOTH SPONGER AND STUDENTS AWARE. PT REPORTS A "GOOD NIGHT". PT REPORTS NO PAIN AT THIS TIME, NO NEED FOR RESTROOM, PERSONAL BELONGINGS IN REACH.
--- NOTE | 2017-05-04 10:06 | NUR ---
PATIENT SITTING UP IN CHAIR. DAUGHTER IN ROOM. CALL BUTTON IN REACH. NO OTHER NEEDS AT THIS TIME.
--- NOTE | 2017-05-04 10:42 | NUR ---
PT UP IN CHAIR WITH DAUGHTER AT BEDSIDE. DAUGHTER HAD QUESTIONS ABOUT WEIGHT LOSS AND BLOOD PRESSURE. ALL QUESTIONS WERE ANSWERED. PT APPEARS COMFORTABLE. DENIES PAIN, NEED FOR BATHROOM, OR NAUSEA AT THIS TIME. PT HAS CONSUMED HER FREE FLUIDS FOR AM. PT IS AWARE OF FLUID RESTRICTIONS. PERSONAL BELONGINGS IN REACH.
--- NOTE | 2017-05-04 13:09 | NUR ---
PT DAUGHTER CALLED AND STATED THAT PER OUR CONVERSATION THE OTHER DAY THAT THE PT HAD DECIDED THAT SHE THINKS A FRONT WHEELED WALKER WOULD BE A GOOD SAFETY THING FOR HER TO HAVE. SHE HAS USED THEM HERE FOR SEVERAL DAYS AND SHE FEELS SAFER WITH IT. TALKED WITH DR GOODEN, ORDERED THE WALKER THROUGH [facility] WHICH PT STATES SHE IS ALREADY AFFILIATED WITH THEM. I SPOKE WITH QUAN AND SHE SAID TO FAX ORDER AND CHART NOTES AND IT WOULD BE DELIVERED TODAY.
--- NOTE | 2017-05-04 13:16 | NUR ---
PT SITTING IN CHAIR, ALERT AND ORIENTED. SHE MENTIONED THAT SHE WAS FEELING BETTER, HOPING TO BE DC'D SOON. PT STATED SHE SLEPT OK, AND WAS EXPECTING LUNCH ANYTIME. WE HAD A PLEASANT CONVERSATION, SHE THANKED ME FOR STOPPING, DECLINED PRAYER AT THIS TIME. WILL CONTINUE TO CONNECT WITH PT.
--- NOTE | 2017-05-04 13:29 | NUR ---
patient resting in bed watching tv. daughter in room. patient had dried blood under her nostril. patient states that she gets bloody noses from time to time. this power plant installer attached humidifier to NC. call button in reach no other needs at this time.
--- NOTE | 2017-05-04 14:20 | NUR ---
DURING THE CARE CONFERENCE WE INTRODUCED THE CHW AND THEY WERE VERY INTERESTED IN HAVING HER HAVE SOME VISITS WITH HER. REFERRAL WAS MADE.
--- NOTE | 2017-05-04 14:30 | NUR ---
ATTENDED CARE CONFRENCE WITH PT, HER DAUGHTER, DR GOODEN, KARLY RN, NIGEL RN, AND THIS RN. QUAN FROM [facility] CAME TO DROP OFF WALKER AND GET SIGNATURES. QUESTIONS ABOUT PORTABLE O2 CONCENTRATORS. PT AND DAUGHTER HAD QUESTIONS, ALL QUESTIONS WERE ANSWERED. DR GOODEN STARTED ROOM AIR TRIAL. PT MAINTAINING O2 AT 88-92%. WILL CONTINUE TO MONITOR FOR ABOUT ONE HOUR, THEN REEVALUATE. ADVISED DAUGHTER TO LET RN KNOW IF PT NEEDS TO GET UP AND WE WILL INCREASE O2 FOR ACTIVITY.
--- NOTE | 2017-05-04 14:49 | NUR ---
CARE CONFERENCE ATTENDEES: PATIENT, DAUGHTER KARLY. STAFF: DR GOODEN, [employer] MANAG[employer], DARIEN PEREA RN, [facility], [facility], TOWARDS THE END QUAN FROM [facility]. DR GOODEN DISCUSSED WITH PT HOW SHE WAS DOING AND WHEN HE WAS ANTICIPATING HER DISCHARGE AND WHAT EXPECTATIONS HE HAS. HE TALKED ABOUT HER USING HER O2 AND NOW WE ARE SEEING HOW SHE IS DOING WITHOUT O2, ALSO DISCUSSED THAT SHE NEEDS A FWW, TOLD THEM IT SHOULD BE ARRIVING AT ANY TIME. QUAN FROM [facility] ARRIVED AND DISCUSSION WAS HAD REGARDING A RANGE CONSERVATIONIST WEIGHT O2 FOR HER TO MOVE AROUND WITH. IT WAS EXPLAINED TO PT AND DAUGHTER WHAT A CHW WAS AND THAT IT WOULD PROBABLY BE OF SOME ASSISTANCE TO THE PT FOR WHEN SHE GOES HOME. PT AND FAMILY DENIED FURTHER QUESTIONS AT THE END, STATED WE WOULD BE AVAILABLE IF NEEDED.
--- NOTE | 2017-05-04 16:00 | NUR ---
patient resting in bed watching tv with her daughter. call button in reach. No other needs at this time.
--- NOTE | 2017-05-04 17:17 | NUR ---
Heart failure education reinforced with patient today. She verbalized understanding with teach back. Identifies strengths and support system. Follow up visit with PCP changed to 05/12 @1130 PHQ-9 score 20 + #10- Somewhat difficult Mini-Cog score 5 Will convey screening scores to PCP.
--- NOTE | 2017-05-04 17:53 | NUR ---
PATIENT SITTING UP IN BED, EYES CLOSED O2 AT 84-86. SAT ON EDGE OF BED AND O2 LEVEL WENT UP (1L) AMBULATION TO BATHROOM WITH 1 PERSON ASSIST. BACK TO CHAIR, LEGS ELEVATED AND CALL BUTTON IN REACH. NO OTHER NEEDS.
--- NOTE | 2017-05-04 17:53 | NUR ---
PT CONTINUES TO HAVE NEG FLUID BALANCE. PT TOLERATED ROOM AIR TRIAL WELL, DESATS WITH ACTIVITY RECOVERS WELL. CARE CONFRENCE WITH DISCHARGE PLANNING, PHARMACY, MD, COMMUNITY RESOURCE RN, AND FAMILY. PT AND FAMILY ASKED QUESTIONS, ALL QUESTIONS ANSWERED. PT AMBULATED IN JOHN. BM THIS SHIFT. BED ALARM ON.
--- NOTE | 2017-05-04 18:17 | NUR ---
SPOKE WITH DR GOODEN RE: PAINFUL IV SITE. DR GOODEN ORDERED TAKE IT OUT AND OK TO LEAVE IV OUT.
--- NOTE | 2017-05-04 19:28 | NUR ---
RECIEVED REPORT FROM DARIEN DEGROOT. PATIENT RESTING IN BED. CONT PULSE OX IN PLACE, O2 AT 92% ON RA. PATIENT DENIES NEEDS. CALL LIGHT IN REACH.
[2017-05-04] MEDS ORDERED: METOPROLOL SUCC50 MG PO (20:09)
[2017-05-04] MEDS ORDERED: LOSARTAN POTAS100 MG PO (20:10)
[2017-05-04] MEDS ORDERED: POTASSIUM CHLO10 MEQ PO (20:11)
[2017-05-04] MEDS ORDERED: MAG-OXIDE400 MG PO (20:14)
[2017-05-04] MEDS ORDERED: METOLAZONE2.5 MG PO (20:14)
[2017-05-04] MEDS ORDERED: SENNA-TIME S T1 EACH PO (20:15)
[2017-05-04] MEDS ORDERED: MIRALAX17 GM PO (20:15)
[2017-05-04] MEDS ORDERED: TORSEMIDE20 MG PO (20:15)
--- NOTE | 2017-05-04 21:06 | NUR ---
PATIENT RESTING IN BED. SHE IS ON 1L OF O2 AT 94%. CONT. PULSE OX IN PLACE. PATIENT DENIES PAIN. MINIMAL CRACKLES HEARD IN LLL, DIMINISHED IN RLL AND CLEAR IN THE UPPER LOBES. PATIENT DENIES SOB AND COUGH AT THIS TIME. PATIENT STATES SHE HAS BEEN COMPLIANT WITH HER INCENTIVE SPIROMETER AND ACCAPELLA. HR REGULAR, MURMUR NOTED. BS HYPOACTIVE, PATIENT HAD A BM TODAY. TRACE EDEMA BLE. PATIENT DENIES NEEDS AT THIS TIME. CALL LIGHT IN REACH.
--- NOTE | 2017-05-04 21:36 | NUR ---
ROUNDED CHARGE. PATIENT IS RESTING IN BED WATCHING TV. PATIENT HAS NO COMPLAINTS, COMMENTS, QUESTIONS, OR CONCERNS AT THIS TIME. CALL LIGHT IN REACH.
--- NOTE | 2017-05-04 23:30 | NUR ---
ASSISTED PATIENT TO BATHROOM. PATIENT TOOK OFF OXYGEN BEFORE SHE AMBULATED. VOIDED. BACK TO BED. APPLIED CONT. PULSE OX AFTER AMBULATING, O2 AT 85%. APPLIED 1L AND O2 NOW AT 97%. PATIENT DENIES NEEDS. CALL LIGHT IN REACH.
--- NOTE | 2017-05-05 00:14 | NUR ---
PATIENT SLEEPING. NASAL CANNULA IN PLACE. O2 AT 97% ON 1L/MIN. CALL LIGHT IN REACH. BED ALARM SET.
--- NOTE | 2017-05-05 02:45 | NUR ---
PATIENT SLEEPING. O2 AT 97%. NASAL CANNULA IN PLACE. CALL LIGHT IN REACH. BED ALARM ON.
--- NOTE | 2017-05-05 04:23 | NUR ---
ASSISTED PATIENT TO THE BATHROOM. VOIDED. BACK TO BED. PATIENT'S LUNGS IMPROVED SINCE LAST NIGHT. MINIMAL CRACKLES HEARD IN LLL, OTHERWISE CLEAR, DIM IN RLL. PATIENT DOES HAVE A DRY COUGH AT TIMES. DENIES SOB. PATIENT IS 87-90 ON RA. 1L O2 IN PLACE, PATIENT'S SAT IS AT 96%. HR REGULAR. BS HYPERACTIVE. PATIENT HAD SMALL BM THIS MORNING. TRACE BILATERAL LOWER EXTREMITY EDEMA. PALPABLE PEDAL PULSES. PATIENT DENIES PAIN. DENIES NEEDS AT THIS TIME. CALL LIGHT IN REACH. BED ALARM IN PLACE.
--- NOTE | 2017-05-05 06:52 | NUR ---
ASSISTED PATIENT TO BATHROOM. VOIDED. PATIENT WASHED HER FACE, BRUSHED HER TEETH, COMBED HAIR INDEPENDENTLY. PATIENT BACK TO BED. WATER PITCHER FILLED 200CC. O2 AT 1L/MIN. NASAL CANNULA IN PLACE. PATIENT DENIES FURTHER NEEDS.
--- NOTE | 2017-05-05 07:45 | NUR ---
PAIENT SITTING STRAIGHT UP IN BED EATING BREAKFAST. PATIENT STATED SHE ALREADY WASHED FACE AND BRUSHED TEETH AT SINK. PATIENT SAID SHE MAY WANT TO SHOWER BEFORE DISCHARGE TODAY. CALL LIGHT IN REACH. NO OTHER NEEDS.
--- NOTE | 2017-05-05 09:30 | NUR ---
MORNING ASSESSEMENT DONE. PT RESTING IN BED. DAUGHTER AT BEDSIDE. PT STATES "I'M FEELING MUCH BETTER." PT TAKING PILLS WITHOUT DIFFICULTY. PT AHERING TO FLUID RESTRICTION. BED RAILS UP. CALL LIGHT WITHIN REACH. DAUGHTER AT BEDSIDE. ASKING QUESTIONS ABOUT ASSESSMENT AND INVOLVED IN CARE. PT STATES SHE FEELS READY TO GO HOME. PLAN OF CARE DISCUSSED.
--- NOTE | 2017-05-05 09:50 | NUR ---
RT WORKING WITH PATIENT.
--- NOTE | 2017-05-05 10:00 | NUR ---
PT UP AMBULATING IN HALLS WITH RESP. THERAPIST FOR OXYGEN QUALIFIER TO INCREASE PRESCRITION FOR HOME O2
--- NOTE | 2017-05-05 11:01 | NUR ---
MD AT BEDSIDE FOR ROUNDS. THIS RN PRESENT FOR INSTRUCTIONS. POTASSIUM GIVEN ORDERED (SEE MAR). DAUGHTER PRESENT AT BEDSIDE, ENGAGED WITH CARE AND ASKING QUESTIONS. PT AND DAUGTHER VERBALIZE UNDERSTANDING OF MD'S INSTRUCTIONS. PT SITTING INCHAIR. OXYGEN ON. PT STATES "EVERYONE HAS BEEN SO NICE AND I'M SO THANKFUL FOR THE CARE I'VE HAD HERE." CALL LIGHT WITHIN REACH. DAUGHTER AT BEDSIDE.
[2017-05-05] MEDS ORDERED: POTASSIUM CHLO10 MEQ PO (11:06)
--- NOTE | 2017-05-05 11:37 | NUR ---
FOCUSSED ASSESSEMENT DONE. PT UP IN CHAIR AND EATING LUNCH WITH HER DAUGHTER. PT DOES NOT APPEAR SHORT OF BREATH, RR. 16. O2, 1L NC IN PLACE. CALL LIGHT WITHIN REACH. PT HAS NO REQUESTS OR COMPLAINTS AT THIS TIME AND STATES SHE IS "EXCITED TO GO HOME." PT ALSO SHOWS OFF HER NEW WALKER AND STATES SHE WILL BE USING IT AT HOME.
--- NOTE | 2017-05-05 12:45 | NUR ---
PATIENT'S DAUGHTER ASSISTING PATIENT WITH DRESSING IN HOME CLOTHES FOR DISCHARGE. NO OTHER NEEDS AT THIS TIME.
--- NOTE | 2017-05-05 14:10 | NUR ---
EDUCATION GIVEN TO PATIENT AND DAUGHTER CAREGIVER KARLY ON MEDICATIONS LAST DOSE NEXT DOSE WRITTEN ON DISCHARGE PACKET. ACTIVITY TOLERATED, USE 1L AT REST AND 2L WHEN UP AMBULATING. DISCUSSED FOLLOW UP APPOINTMENT AND TO HAVE BLOOD DRAWN ON 05/11/17 FOR LABS PRIOR TO FOLLOW UP APPOINTMENT. INSTRUCTIONS ON SIGNS AND SYMPTOMS TO MONITOR AND TO SEEK MEDICAL ATTENTION. CHARTS GIVEN TO FOLLOW DAILY WEIGHT AND MONITOR B/P DAILY. I.V. SITE REMOVED AT THIS TIME WNL. PT HAS WALKER FOR HOME. ALL QUESTIONS ANSWERED AND VERBALIZED BACK.
--- NOTE | 2017-05-05 15:32 | NUR ---
FAXED CHART NOTES AND NEW O2 ORDER AND HOME RT O2 QUALIFIER TO [facility] IN RESPECT TO THE INCREASED USAGE OF O2 THE PT WILL BE HAVING. TALKED WITH QUAN FROM [facility] AND SHE WAS GOOD WITH THIS.
--- NOTE | 2017-05-06 16:11 | NUR ---
Discharge follow up call #1- LM earlier today for daughter Natasha to contact me. Natasha returned call and states all is going well. No symptoms of fluid overload. Today's weight was down to 132lb. She is following oxygen regimen as planned. she slept well last night without frequent urination. Following diet as prescribed and appetite is WNL. Today had oatmeal, green salad with tuna, and tonight is having a recipe given to them by billet checker. SBP WNL 121 and 130 today. States that the medications are now clear, she had called Paola DEGROOT and clarified timing of BP medications. She is planning on using medication schedule format given during our visit. Notified her that patient would qualify for cardiac rehab and she agrees to be placed on waitlist. She will follow up with PCP.
== END 2017-05-05 14:30 | disposition home or self-care (01) | DRG 291 ==
LOC: ED 15:58 → MS 18:58
PROVIDERS: ADMIT Internal Medicine
DX: I11.0 Hypertensive heart disease with heart failure (principal); J96.21 Acute and chronic respiratory failure with hypoxia; J44.1 Chronic obstructive pulmonary disease with (acute) exacerbation; I50.33 Acute on chronic diastolic (congestive) heart failure; I35.0 Nonrheumatic aortic (valve) stenosis; I27.20 Pulmonary hypertension, unspecified; I25.10 Atherosclerotic heart disease of native coronary artery without angina pectoris; E03.9 Hypothyroidism, unspecified; I34.0 Nonrheumatic mitral (valve) insufficiency; Z85.41 Personal history of malignant neoplasm of cervix uteri; K59.09 Other constipation; R32 Unspecified urinary incontinence
CPT/HCPCS: 36415; 71046; 80048; 80053; 80069; 81001; 83735; 83880; 84484; 85025; 87088; 93005; 93010; 93306; 94640; 94667; 94668; 94761; 94762; 97116; 97161; J1120; J1650; J2930; J3475